=== PATIENT | female | born 1985 | race Caucasian/White ===

== ENCOUNTER 2024-01-03 22:26 | Emergency (ER) | payer OTHER ==
[~2024-01-03] VITALS: Ht 154.9 cm; Wt 55.3 kg
[~2024-01-03 22:26] MED LIST: CIPRO500 MG PO
[2024-01-03] MEDS ORDERED: SODIUM CHLORIDE 0.9% 1,000 ML IV ONE (23:55)
[2024-01-04] VITALS (8 sets, daily range): BP systolic 96–143; BP diastolic 42–77
[2024-01-04 00:28] LABS: MEAN CELL VOLUME 88.5 fl (81.0-99.0); MEAN CORPUSCULAR HGB 26.9 pg (27.0-31.0); MEAN CORPUSCULAR HGB CONC 30.4 g/dl (33.0-37.0); PLATELET COUNT AUTOMATED 246 10*3/uL (130-400); RED BLOOD COUNT 2.34 10*6/uL (4.10-5.10); RED CELL DISTRI WIDTH 15.6 % (0-14.5); WHITE BLOOD COUNT 6.8 10*3/uL (4.8-10.8)
[2024-01-04 00:29] LABS: MANUAL DIFF REFLEX YES
[2024-01-04 00:34] LABS: HEMATOCRIT 20.7 % (37.0-47.0)
[2024-01-04 00:38] LABS: ACT PARTIAL THROMBO TIME 20.2 SECONDS (20.0-32.1)
[2024-01-04 00:46] LABS: BILIRUBIN Negative (Negative); BLOOD Negative (Negative); CLARITY Clear (Clear); COLOR Yellow (Yellow); GLUCOSE Negative (Negative); KETONE Negative (Negative); LEUKO ESTERASE 3+ (Negative); NITRITE Negative (Negative); PH 6.5 (4.5-8.0); SPECIFIC GRAVITY 1.015 (1.001-1.030); UROBILINOGEN 0.2 E.U./dl (0.0-1.0)
[2024-01-04 00:50] LABS: PLATELET SUFFICIENCY NORMAL (NORMAL); POLYCHROMASIA SLIGHT; TOTAL CELLS COUNTED 100 #CELLS
[2024-01-04 00:50] LABS: ALKALINE PHOSPHATASE 70 U/L (46-116); BUN 12 mg/dl (9-23); CHLORIDE 105 mmol/L (98-107)
[2024-01-04 00:51] LABS: OVALOCYTES FEW
[2024-01-04 00:52] LABS: SGPT/ALT < 7 U/L (5-49)
[2024-01-04 00:53] LABS: URINE AMPHETAMINES Negative (1000ng/ml); URINE BARBITURATES Negative (200ng/ml); URINE BENZODIAZEPINES Positive (200ng/ml); URINE CANNABINOIDS (THC) Negative (50ng/ml); URINE COCAINE Positive (300ng/ml); URINE METHADONE Negative (300ng/ml); URINE OPIATES Negative (300ng/ml); URINE PHENCYCLIDINE Negative (25ng/ml)
[2024-01-04 00:53] LABS: ETHYL ALCOHOL < 3.0 mg/dl (<3)
[2024-01-04 00:54] LABS: BACTERIA 2+; RBC 0-2 rbc/hpf (0-2); WBC 41-50 wbc/hpf (0-5)
[2024-01-04] MEDS ORDERED: LORazepam 0.5 MG TAB PO ONE (00:55)
[2024-01-04] MEDS ORDERED: Ceftriaxone Sodium 1 GM/10 ML SYR IV ONE (01:05)
[2024-01-04] MEDS ORDERED: SODIUM CHLORIDE 0.9% 1,000 ML IV SCH (01:05)
[2024-01-04 04:06] LABS: HEMATOCRIT 23.2 % (37.0-47.0); MEAN CELL VOLUME 89.2 fl (81.0-99.0); MEAN CORPUSCULAR HGB 28.5 pg (27.0-31.0); MEAN CORPUSCULAR HGB CONC 31.9 g/dl (33.0-37.0); MEAN PLATELET VOLUME 9.5 fl (9.6-12.3); PLATELET COUNT AUTOMATED 254 10*3/uL (130-400); WHITE BLOOD COUNT 2.7 10*3/uL (4.8-10.8)
[2024-01-04 04:08] LABS: MANUAL DIFF REFLEX YES
[2024-01-04 04:32] LABS: BASOPHILS 1 % (0-1); BURR CELLS FEW; PLATELET SUFFICIENCY NORMAL (NORMAL); POLYCHROMASIA SLIGHT; TOTAL CELLS COUNTED 100 #CELLS
[2024-01-04 04:33] LABS: ROULEAUX SLIGHT
== END 2024-01-04 04:22 | disposition left against medical advice (07) ==
LOC: ED 22:26
PROVIDERS: Internal Medicine
DX: R56.9 Unspecified convulsions (principal); F31.9 Bipolar disorder, unspecified; F41.9 Anxiety disorder, unspecified; Z53.29 Procedure and treatment not carried out because of patient's decision for other reasons

== ENCOUNTER 2024-01-06 15:39 | Emergency (ER) | payer OTHER ==
[~2024-01-06] VITALS: Ht 154.9 cm; Wt 55.3 kg
[2024-01-06] MEDS ORDERED: ABILIFY15 MG PO (16:03)
[2024-01-06] MEDS ORDERED: LAMICTAL150 MG PO (16:04)
[2024-01-06] MEDS ORDERED: FLUOXETINE HCL40 MG PO (16:04)
[2024-01-06] MEDS ORDERED: CLONAZEPAM0.5 M2 PO (16:04)
[2024-01-06] MEDS ORDERED: SODIUM CHLORIDE 0.9% 1,000 ML IV ONE (16:15)
[2024-01-06] MEDS ORDERED: NA FERRIC GLUC CMPL/SUCROSE 62.5 MG/5 ML VIAL IV ONE (16:20)
[2024-01-06 17:02] LABS: BUN 6 mg/dl (9-23); CHLORIDE 107 mmol/L (98-107); POTASSIUM 3.8 mmol/L (3.4-5.1)
[2024-01-06 17:10] LABS: BASO # 0.1 10*3/uL (0.0-0.1); BASO % 0.9 % (0.0-1.0); EOS # 0.1 10*3/uL (0.0-0.4); EOS % 0.9 % (1.0-4.0); HEMATOCRIT 27.9 % (37.0-47.0); LYMPH # 1.3 10*3/uL (1.3-4.4); LYMPH % 23.9 % (27.0-41.0); MEAN CELL VOLUME 88.3 fl (81.0-99.0); MEAN CORPUSCULAR HGB 27.5 pg (27.0-31.0); MEAN CORPUSCULAR HGB CONC 31.2 g/dl (33.0-37.0); MEAN PLATELET VOLUME 10.3 fl (9.6-12.3); MONO # 0.5 10*3/uL (0.1-1.0); MONO % 9.2 % (3.0-9.0); NEUT # 3.6 10*3/uL (2.3-7.9); NEUT % 64.9 % (47.0-73.0); PLATELET COUNT AUTOMATED 239 10*3/uL (130-400); RED BLOOD COUNT 3.16 10*6/uL (4.10-5.10); RED CELL DISTRI WIDTH 15.3 % (0-14.5); WHITE BLOOD COUNT 5.5 10*3/uL (4.8-10.8)
[2024-01-06] MEDS ORDERED: IRON325 M1 PO (17:50)
[2024-01-06] MEDS ORDERED: PEPCID20 MG PO (17:50)
== END 2024-01-06 18:03 | disposition home or self-care (01) ==
LOC: ED 15:39
PROVIDERS: Emergency Medicine
DX: D64.9 Anemia, unspecified (principal); R53.1 Weakness; F31.9 Bipolar disorder, unspecified; F41.9 Anxiety disorder, unspecified

== ENCOUNTER 2024-10-31 22:57 | Emergency (ER) | payer OTHER ==
[~2024-10-31] VITALS: Ht 154.9 cm; Wt 62.6 kg
[~2024-10-31 22:57] MED LIST changes: +ABILIFY15 MG PO; +CLONAZEPAM0.5 M2 PO; +FLUOXETINE HCL40 MG PO; +IRON325 M1 PO; +LAMICTAL150 MG PO; +PEPCID20 MG PO
[2024-10-31] MEDS ORDERED: LORazepam 1 MG TAB PO ONE (23:20)
== END 2024-10-31 23:55 | disposition home or self-care (01) ==
LOC: ED 22:57
DX: S01.552A Open bite of oral cavity, initial encounter (principal); F41.9 Anxiety disorder, unspecified; F32.A Depression, unspecified; Z79.899 Other long term (current) drug therapy; Y33.XXXA Other specified events, undetermined intent, initial encounter; Y93.89 Activity, other specified; Y92.89 Other specified places as the place of occurrence of the external cause; Y99.8 Other external cause status